=== PATIENT | female | born 1995 | race Hispanic/Latino ===

== ENCOUNTER 2022-02-28 21:36 | Emergency (ER) | payer SELFPAY ==
[~2022-02-28] VITALS: Ht 160 cm; Wt 72.1 kg
[~2022-02-28 21:36] MED LIST: BACTRIM DS TAB1 EACH PO; FIORICET1 EA PO; NAPROXEN250 MG PO; SUMATRIPTAN SUC25 MG PO
[2022-02-28] MEDS ORDERED: KETOROLAC TROMETHAMINE 30 MG/ML VIAL IV STA (21:39)
[2022-02-28] MEDS ORDERED: SODIUM CHLORIDE 0.9% 1000ML 1,000 ML IV SCH (21:45)
[2022-02-28] MEDS ORDERED: METOCLOPRAMIDE HCL 10 MG/2ML VIAL IV ONE (21:45)
[2022-02-28] MEDS ORDERED: MAGNESIUM SULFATE 2GM/50ML 25 ML IV ONE (21:45)
[2022-02-28] MEDS ORDERED: DIPHENHYDRAMINE HCL 25 MG CAP PO ONE (21:45)
== END 2022-02-28 23:45 | disposition home or self-care (01) ==
LOC: ER 21:39
DX: G43.909 Migraine, unspecified, not intractable, without status migrainosus (principal)
CPT/HCPCS: 99283; J1885; J2765; J3475; J7030